=== PATIENT | male | born 1945 | race Caucasian/White ===

== ENCOUNTER 2020-02-18 19:01 | Inpatient (IN) | payer MEDICARE, BC ==
[~2020-02-18] VITALS: Ht 180.3 cm; Wt 77.6 kg
--- NOTE | 2020-02-18 19:07 | NUR ---
LEE MADDOX 88 From [facility] "Fever/more altered than usual. RA sats 82- on 6L/NC now 98. vs checked. hooked on monitor. iv access started blood draw done. urine collected. sent to lab.
[2020-02-18] MEDS ORDERED: IV NS 0.9% 500 ML BAG IV ONE (19:30)
[2020-02-18] MEDS ORDERED: ACETAMINOPHEN 650 MG/SUPP.RECT RC ONE ×2 (19:30→19:39)
[2020-02-18 19:34] LABS: BASOPHILS % (AUTO) 0.3 % (0.0-2.0); HEMATOCRIT 37 % (39-51); HEMOGLOBIN 12.2 g/dL (13.5-17.5); LYMPHOCYTES % (AUTO) 12.7 % (20.0-44.0); MEAN CORPUSCULAR HGB CONC 33 g/dl (31.0-36.0); MEAN CORPUSCULAR VOLUME 94 fL (80-96); MONOCYTES # (AUTO) 0.3 /CMM (0.1-1.30); MONOCYTES % (AUTO) 3.4 % (2.0-12.0); NEUTROPHILS # (AUTO) 6.6 /CMM (1.8-8.9); NEUTROPHILS % (AUTO) 83.6 % (43.0-81.0); PLATELET COUNT (AUTO) 215 /CMM (150-450); RED BLOOD CELL COUNT(AUTO) 3.99 MIL/uL (4.5-6.0); WHITE BLOOD COUNT (AUTO) 7.9 K/uL (4.3-11.0)
[2020-02-18 19:37] LABS: BILIRUBIN,URINE Negative (NEGATIVE); COLOR,URINE YELLOW (YELLOW); LEUKOCYTE ESTERASE ,URINE Negative (NEGATIVE); NITRITE, URINE Positive (NEGATIVE); PH,URINE 5.5 (5.0-8.0); PROTEIN,URINE >=300 mg/dl (NEGATIVE); UGLUCOSE 500 MG/DL mg/dL (NEGATIVE); UROBILINOGEN,URINE 0.2 EU/dL (0.2)
--- NOTE | 2020-02-18 19:40 | NUR ---
TOOK OVER PT CARE. PT NON VERBAL AT THIS MOMENT. PT DOES FOLLOW COMMAND WHEN ASKED TO OPEN AND CLOSE EYES. APPEARS TO BE IN DISTRESS, WARM TO TOUCH. PT ON 4L NC, SAT 98%. UPON CHECKING TEMP, 102.7, AWARE.
--- NOTE | 2020-02-18 19:41 | NUR ---
COOLING MEASURES INITIATED ON PT. WILL RECHECK TEMP.
[2020-02-18 19:44] LABS: CALCIUM, SERUM 8.7 mg/dL (8.5-10.1); CARBON DIOXIDE 32 mmol/L (21-32); CHLORIDE 100 mmol/L (98-107); GLUCOSE 229 mg/dL (74-106); SODIUM SERUM 139 mmol/L (136-145); UREA NITROGEN, BLOOD 22 mg/dL (7-18)
--- NOTE | 2020-02-18 19:48 | NUR ---
CHARISMAID SWABBED, SENT TO LAB.
[2020-02-18 19:50] LABS: WBC,URINE NONE SEEN /HPF (0-3)
[2020-02-18 19:52] LABS: BACTERIA,URINE 2+ /HPF (None Seen); SQUAMOUS EPITHELIAL CELL,UR Few /HPF (None Seen)
[2020-02-18 19:58] LABS: ALANINE AMINOTRANSFERASE 7 U/L (12-78); ALBUMIN 2.7 g/dL (3.4-5.0); ALKALINE PHOSPHATASE 71 U/L (46-116); ASPARTATE AMINOTRANSFERASE 24 U/L (15-37); B-TYPE NATRIURETIC PEPTIDE 1364 PG/ML (0-125); BILIRUBIN,DIRECT 0.1 mg/dL (0.0-0.2); BILIRUBIN,TOTAL 0.3 mg/dL (0.2-1.0); TOTAL PROTEIN, SERUM 7.8 g/dL (6.4-8.2)
--- NOTE | 2020-02-18 19:58 | NUR ---
PT MEDICATED, AWAITING OTHER ORDERS.
[2020-02-18] MEDS ORDERED: VANCOMYCIN 1 GM in IV D5W 250 ML IV ONE (20:30)
[2020-02-18] MEDS ORDERED: PIPERACILLIN /TAZOBACTAM 3.375 G in IV D5W 50 ML IV ONE (20:30)
--- NOTE | 2020-02-18 20:33 | NUR ---
call from lab rapid covid positive.
[2020-02-18] MEDS ORDERED: VANCOMYCIN 1 GM VIAL ONE (20:44)
[2020-02-18] MEDS ORDERED: PIPERACILLIN /TAZOBACTAM 3.375 G VIAL IV ONE (20:44)
--- NOTE | 2020-02-18 21:33 | NUR ---
LUTHER SPOKE TO THE REGARDING PLAN OF CARE.
[2020-02-18] MEDS ORDERED: ONDANSETRON HCL/PF 4 MG/2 ML VIAL IVP PRN (22:30)
[2020-02-18] MEDS ORDERED: ALBUTEROL SULFATE 8 GM HFA.AER.AD IH PRN (22:30)
[2020-02-18] MEDS ORDERED: ACETAMINOPHEN 650 MG/SUPP.RECT RC PRN (22:30)
[2020-02-18] MEDS ORDERED: DEXTROSE 50%-WATER 50 ML DISP.SYRIN IV PRN (22:30)
[2020-02-18] MEDS ORDERED: PANTOPRAZOLE 40 MG VIAL IV SCH (22:30)
[2020-02-18] MEDS ORDERED: FAMOTIDINE/PF INJ 20 MG/2 ML VIAL IV ONE (23:22)
[2020-02-18] MEDS ORDERED: ENOXAPARIN SODIUM 40 MG/0.4 ML DISP.SYRIN SQ ONE (23:22)
[2020-02-18] MEDS ORDERED: DOXYCYCLINE 100 MG VIAL ONE (23:22)
[2020-02-18] MEDS: FAMOTIDINE/PF INJ 20 MG/2 ML VIAL IV SCH (23:32)
[2020-02-18] MEDS: DOXYCYCLINE 100 MG in IV D5W 100 ML IV SCH (23:35)
[2020-02-18] MEDS: IV NS 0.9% 1,000 ML IV PRN (23:35)
[2020-02-18] MEDS: ENOXAPARIN SODIUM 40 MG/0.4 ML DISP.SYRIN SQ SCH (23:37)
[2020-02-19] MEDS: BLOOD SUGAR DIAGNOSTIC 1 EACH STRIP IN SCH ×4 (00:39→17:54)
[2020-02-19] MEDS ORDERED: INSULIN REGULAR, HUMAN 100 UNIT/ML 10 ML VIAL ONE (00:42)
[2020-02-19] MEDS: INSULIN REGULAR, HUMAN 100 UNIT/ML 3 ML VIAL SQ PRN ×4 (00:45→17:57)
--- NOTE | 2020-02-19 00:55 | NUR ---
RESTING COMFORTABLY. REMAINS ON 5L NC. SAT 98%
--- NOTE | 2020-02-19 00:55 | NUR ---
Dru burger in ED - 02/19/20 at 0055 by DAKSHA RESTING COMFORTABLY. REMAINS ON 5L NC. SAT 98%.
[2020-02-19 03:45] LABS: BASOPHILS # (AUTO) 0.1 /CMM (0.0-0.2); BASOPHILS % (AUTO) 0.9 % (0.0-2.0); HEMATOCRIT 38 % (39-51); HEMOGLOBIN 12.2 g/dL (13.5-17.5); LYMPHOCYTES # (AUTO) 1.3 /CMM (0.8-4.8); LYMPHOCYTES % (AUTO) 14.5 % (20.0-44.0); MEAN CORPUSCULAR HGB CONC 32 g/dl (31.0-36.0); MEAN CORPUSCULAR VOLUME 94 fL (80-96); MONOCYTES # (AUTO) 0.3 /CMM (0.1-1.30); MONOCYTES % (AUTO) 3.3 % (2.0-12.0); NEUTROPHILS # (AUTO) 7.2 /CMM (1.8-8.9); NEUTROPHILS % (AUTO) 81.3 % (43.0-81.0); PLATELET COUNT (AUTO) 199 /CMM (150-450); RED BLOOD CELL COUNT(AUTO) 4.02 MIL/uL (4.5-6.0); WHITE BLOOD COUNT (AUTO) 8.9 K/uL (4.3-11.0)
[2020-02-19 04:00] LABS: ALANINE AMINOTRANSFERASE 8 U/L (12-78); ALBUMIN 2.4 g/dL (3.4-5.0); ALKALINE PHOSPHATASE 65 U/L (46-116); ASPARTATE AMINOTRANSFERASE 26 U/L (15-37); BILIRUBIN,TOTAL 0.3 mg/dL (0.2-1.0); CALCIUM, SERUM 8.6 mg/dL (8.5-10.1); CARBON DIOXIDE 27 mmol/L (21-32); CHLORIDE 103 mmol/L (98-107); CREATININE 0.9 mg/dL (0.6-1.3); GLUCOSE 200 mg/dL (74-106); POTASSIUM 3.7 mmol/L (3.5-5.1); SODIUM SERUM 140 mmol/L (136-145); TOTAL PROTEIN, SERUM 6.9 g/dL (6.4-8.2); UREA NITROGEN, BLOOD 19 mg/dL (7-18)
[2020-02-19 04:15] LABS: FERRITIN 324 ng/mL (8-388)
[2020-02-19] MEDS ORDERED: ZOSYN IVPB 3.375 G in IV D5W 50ml IV ONE (05:00)
[2020-02-19] MEDS ORDERED: PIPERACILLIN /TAZOBACTAM 3.375 G in IV D5W 50 ML IV SCH (05:00)
[2020-02-19] MEDS ORDERED: PIPERACILLIN /TAZOBACTAM 3.375 G VIAL IV ONE (05:21)
--- NOTE | 2020-02-19 06:25 | NUR ---
REPORT GIVEN TO ABDIRIZAK MADDOX FOR ROMULO
--- NOTE | 2020-02-19 06:25 | NUR ---
RN NOTES RECEIVED ER ADMISSION REPORT FROM [facility]. ALL PERTINENT ADMISSION INFO REGARDING PT NOTED. WILL WAIT FOR PT TO BE TRANSFERRED TO UNIT AND ADDRESS NEEDS ACCORDINGLY. SHIPPING INSPECTOR MADE AWARE.
--- NOTE | 2020-02-19 06:32 | NUR ---
BG 139, WILL ADMINISTER INSULIN PER PROTOCOL
[2020-02-19] MEDS: IV NS 0.9% 1,000 ML IV PRN (06:43)
--- NOTE | 2020-02-19 06:51 | NUR ---
RN NOTES RECEIVED PT FROM ER VIA LISA ACCOMPANIED BY 1 ER STAFF AND TRANSFERRED TO BED VIA 2 PERSON ASSIST. PT IS ALERT AND ORIENTED X1. PT ON 4L OF O2 VIA NC WITH RESPIRATIONS EVEN AND UNLABORED. COMPREHENSIVE PHYSICAL ASSESSMENT AND PATIENT CARE DONE. CALL LIGHT WITHIN REACH, SAFETY MEASURES AND ISOLATION PRECAUTION IN PLACE, WILL ENDORSE TO AM SHIFT FOR CONTINUATION OF ADMISSION AND ROMULO.
--- NOTE | 2020-02-19 06:51 | NUR ---
PT TRANSFERED PER ACLS PROTOCOL
[2020-02-19 06:58] VITALS: BP 142/76
--- NOTE | 2020-02-19 07:30 | NUR ---
RECEIVED PATIENT ALERTX1, SPEECH GARBLED AND UNCLEAR. PT ABLE TO FOLLOW DIRECTIONS, AND NODS HEAD YES/NO, BUT OFTEN CONFUSED. PT ON 4L NC O2 SAT 95% PT HAS SUPRAPUBIC CATH, DRAINING YELLOW CLEAR URINE. PT NPO, PT IV ACCESS FLUSHED WELL, NO SIGNS OF INFECTION. ALL SAFETY MEASURES IN PLACE. WILL CONTINUE TO MONITOR CLOSELY
[2020-02-19 08:00] VITALS: BP 127/73
[2020-02-19] MEDS: DEXAMETHASONE SOD PHOSPHATE 10 MG/ML VIAL IV SCH (08:06)
[2020-02-19] MEDS ORDERED: DONE5TAB34 PO (08:31)
[2020-02-19] MEDS ORDERED: PRED20TA PO (08:31)
[2020-02-19] MEDS ORDERED: METF-440 PO (08:31)
[2020-02-19] MEDS ORDERED: CARB1TAB24 PO (08:31)
[2020-02-19] MEDS ORDERED: LEVO500T90 PO (08:31)
[2020-02-19] MEDS ORDERED: SELE5TAB5 PO (08:31)
[2020-02-19] MEDS ORDERED: GABA300C PO (08:31)
[2020-02-19] MEDS ORDERED: TRAZ-252 PO (08:31)
[2020-02-19] MEDS ORDERED: EZET10TA32 PO (08:31)
[2020-02-19] MEDS ORDERED: CETI10TA14 PO (08:33)
[2020-02-19] MEDS: DOXYCYCLINE 100 MG in IV D5W 100 ML IV SCH ×2 (10:47→20:07)
[2020-02-19] MEDS: IV NS 0.9% 1,000 ML IV SCH ×2 (10:47→21:39)
[2020-02-19 12:00] VITALS: BP 145/77
[2020-02-19] MEDS: PIPERACILLIN /TAZOBACTAM 3.375 G in IV D5W 100 ML IV SCH ×2 (12:28→18:33)
[2020-02-19 16:00] VITALS: BP 154/88
--- NOTE | 2020-02-19 19:00 | NUR ---
PT REMAINS IN BED, AOX1. PT HAS PUREED DIET, BUT HAS DIFFICULTY SWALLOWING . SPEECH EVAL ORDER IN PLACE. PT HAS SACRAL OPEN WOUND WITH MEPILEX, AND PERINEAL REDNESS. PT IV ACCESS REMAINS INTACT, NO SIGNS OF INFILTRATION. ALL SAFETY MEASURES IN PLACE. REPORT GIVEN TO ELIZABETH FOR ROMULO
--- NOTE | 2020-02-19 19:05 | NUR ---
RECEIVED PT ON BED AWAKE A/X2 OPEN AND CLOSED EYES FOR COMMAND ON 4L NC SPO2 @ 95% NO SIGN AND SYMPTOMS OF SOB, COUGHING WHEN SIPPING SMALL AMOUNT OF WATER VERY HIGH RISK FOR ASPIRATION WILL HOLD ORAL MEDICATION, HAVE TELE MONITOR SR, 80'S HAVE SUPRA PUBIC CATHETER WITH YELLOW URINE DRAINING VIA GRAVITY HAVE RIGHT HAND # 18 WITH ONGOING NS @ 100ML/HR INFUSING WELL BED ON LOWEST POSITION AND LOCKED SIDE RAILS UP X2 CALL LIGHT WITHIN REACH WILL CONT TO MONITOR
[2020-02-19 20:00] VITALS: BP 143/81
[2020-02-19] MEDS: ENOXAPARIN SODIUM 40 MG/0.4 ML DISP.SYRIN SQ SCH (21:39)
[2020-02-19] MEDS: FAMOTIDINE/PF INJ 20 MG/2 ML VIAL IV SCH (21:39)
[2020-02-20] VITALS (7 sets, daily range): BP systolic 154–178; BP diastolic 88–97
[2020-02-20] MEDS: BLOOD SUGAR DIAGNOSTIC 1 EACH STRIP IN SCH ×4 (00:07→17:52)
[2020-02-20] MEDS: INSULIN REGULAR, HUMAN 100 UNIT/ML 3 ML VIAL SQ PRN ×4 (00:08→17:51)
[2020-02-20] MEDS: PIPERACILLIN /TAZOBACTAM 3.375 G in IV D5W 100 ML IV SCH ×3 (02:20→18:00)
--- NOTE | 2020-02-20 06:59 | NUR ---
PT ON BED ASLEEP EASY TO WAKE UP STILL ON 4L O2 VIA NC SPO2 95-98% TELE MONITOR READS SINUS RHYTHM 90'S NO SIGNIFICANT CHANGES ON CONDITION NOTED STILL ON NPO DUE TO PT STILL COUGHING WHEN TAKING SMALL AMOUNT OF ICE OR WATER ALL NEEDS ATTENDED, BED ON LOWEST POSITION AND LOCKED SIDE RAIL UP X2 CALL LIGHT WITHIN REACH WILL ENDORSED TO AM SHIFT NURSE
[2020-02-20] MEDS: DEXAMETHASONE SOD PHOSPHATE 10 MG/ML VIAL IV SCH (08:21)
[2020-02-20] MEDS: DOXYCYCLINE 100 MG in IV D5W 100 ML IV SCH ×2 (08:21→21:08)
[2020-02-20 08:39] LABS: BASOPHILS % (AUTO) 0.1 % (0.0-2.0); HEMATOCRIT 41 % (39-51); HEMOGLOBIN 13.2 g/dL (13.5-17.5); LYMPHOCYTES # (AUTO) 1.1 /CMM (0.8-4.8); LYMPHOCYTES % (AUTO) 10.6 % (20.0-44.0); MEAN CORPUSCULAR HGB CONC 32 g/dl (31.0-36.0); MEAN CORPUSCULAR VOLUME 94 fL (80-96); MONOCYTES # (AUTO) 0.6 /CMM (0.1-1.30); MONOCYTES % (AUTO) 5.9 % (2.0-12.0); NEUTROPHILS # (AUTO) 8.7 /CMM (1.8-8.9); NEUTROPHILS % (AUTO) 83.4 % (43.0-81.0); PLATELET COUNT (AUTO) 250 /CMM (150-450); RED BLOOD CELL COUNT(AUTO) 4.37 MIL/uL (4.5-6.0); WHITE BLOOD COUNT (AUTO) 10.5 K/uL (4.3-11.0)
[2020-02-20 09:14] LABS: CALCIUM, SERUM 8.6 mg/dL (8.5-10.1); CREATININE 0.9 mg/dL (0.6-1.3); POTASSIUM 3.8 mmol/L (3.5-5.1)
--- NOTE | 2020-02-20 10:05 | NUR ---
RN OPENING NOTE. RECEIVED PATIENT IN BED AOX2. PATIENT IS ON 4L NC. PATIENT IS MUMBLING UNCOMPREHENDABLE WORDS. SUPRAPUBIC CATH IS IN PLACE. RHAND #18 IS INTACT, PATENT, AND HAS NO SIGNS OF INFILTRATION. PATIENT HAS SACRAL OPEN SKIN. BED IS IN THE LOWEST POSITION, 2 SIDE RAILS RAISED, CALL MONTIEL WITHIN REACH, AND ALL HOSPITAL SAFETY PRECAUTIONS ARE BEING FOLLOWED. WILL CONTINUE TO MONITOR THROUGHOUT SHIFT.
--- NOTE | 2020-02-20 10:05 | NUR ---
FEEDER OPERATOR AUTOMATIC NOTE REPORTED TO DR SKAGGS ABOUT CHEST COHESION ,STATED TO MONITOR CONT ON 5L NS AWARE THAT SATURATION 85 %
--- NOTE | 2020-02-20 12:00 | NUR ---
KIN MADDOX NOTE T 100,2R TYLENOL RECTALLY GIVEN ORDERED Addendum: 02/20/20 at 1544 by MICHAEL CAMPO RN BP 174/[address] SKAGGS WITH NEW ORDER GIVEN CATAPRES GIVEN ORDERED0.1 MG PO ,ABLE TO TAKE MEDICATION WELL
[2020-02-20] MEDS: IV NS 0.9% 1,000 ML IV SCH (12:02)
[2020-02-20] MEDS: CLONIDINE HCL 0.1 MG TABLET PO PRN ×2 (12:05→18:06)
--- NOTE | 2020-02-20 15:44 | NUR ---
HYDROPONICS GROWER NOTE PER FAMILY WILL BRING HOME MEDS , ORAL SUCTION DONE B Y RT SATURATION 93% AT THIS TIME
[2020-02-20] MEDS ORDERED: HOME MED MISCELLANEOUS XX SCH (17:00)
[2020-02-20] MEDS: SELEGILINE HCL 5 MG CAPSULE PO SCH (17:13)
[2020-02-20] MEDS: CARBIDOPA/LEVODOPA 25/250 MG 1 UDTAB PO SCH ×2 (17:14→21:06)
--- NOTE | 2020-02-20 18:50 | NUR ---
RN CLOSING NOTE PATIENT IS LYING IN BED WITH HOB AT SEMI BASILIO'S POSITION. PATIENT IS AOX2. PATIENT IS ON 4L NC. SUPRAPUBIC CATHETER IS IN PLACE. PATIENT HAS SACRAL OPEN SKIN. RHAND #18 IS INTACT, PATENT, AND HAS NO SIGNS OF INFILTRATION. PATIENT MUMBLES UNCOMPREHENDABLE WORDS. BED IS LOCKED IN THE LOWEST POSITION, CALL MONTIEL WITHIN REACH, 3 SIDE RAILS ARE RAISED, AND ALL HOSPITAL SAFETY PRECAUTIONS ARE BEING FOLLOWED. WILL ENDORSE TO MOBILE PRODUCT MANAGER NURSE.
--- NOTE | 2020-02-20 20:21 | NUR ---
RN NOTES PATIENT ALERT AND ORIENTED X2, SPEAKS INCOMPREHENSIBLE WORDS. ON O2 4LPM VIA NASAL CANNULA, O2 SAT WNL. ON TELE MONITOR, SR NOTED. WITH SUPRAPUBIC CATH, PATENT AND INTACT, DRAINING URINE. WITH IV ACCESS RIGHT HAND #18, RUNNING NS @ 75ML/HR. NO S/S OF ANY DISCOMFORT. BED LOCKED AND IN LOWEST POSITION. SIDE RAILS UP X2. CALL LIGHT WITHIN REACH. WILL CONTINUE TO MONITOR.
[2020-02-20] MEDS: ENOXAPARIN SODIUM 40 MG/0.4 ML DISP.SYRIN SQ SCH (21:07)
[2020-02-20] MEDS: FAMOTIDINE/PF INJ 20 MG/2 ML VIAL IV SCH (21:07)
[2020-02-21] VITALS (7 sets, daily range): BP systolic 100–166; BP diastolic 58–99
[2020-02-21] MEDS: CARBIDOPA/LEVODOPA 25/250 MG 1 UDTAB PO SCH ×6 (00:03→20:58)
[2020-02-21] MEDS: BLOOD SUGAR DIAGNOSTIC 1 EACH STRIP IN SCH ×5 (00:13→23:48)
[2020-02-21] MEDS: INSULIN REGULAR, HUMAN 100 UNIT/ML 3 ML VIAL SQ PRN ×4 (00:16→18:37)
[2020-02-21] MEDS: IV NS 0.9% 1,000 ML IV SCH ×2 (02:00→17:18)
[2020-02-21] MEDS: PIPERACILLIN /TAZOBACTAM 3.375 G in IV D5W 100 ML IV SCH ×3 (02:17→18:39)
--- NOTE | 2020-02-21 07:02 | NUR ---
RN NOTES PATIENT ALERT AND ORIENTED X2, SPEAKS INCOMPREHENSIBLE WORDS. ON O2 4LPM VIA NASAL CANNULA, O2 SAT 95%. ON TELE MONITOR, HR 60'S. WITH SUPRAPUBIC CATH, PATENT AND INTACT, DRAINING URINE WITH OUTPUT 750. WITH IV ACCESS RIGHT HAND #18, RUNNING NS @ 75ML/HR. ALL DUE MEDS GIVEN ORDERED. BED LOCKED AND IN LOWEST POSITION. SIDE RAILS UP X2. CALL LIGHT WITHIN REACH. WILL ENDORSE TO ONCOMING SHIFT.
--- NOTE | 2020-02-21 08:12 | NUR ---
WOUND CARE CONSULT: REVIEWED CHART, NURSING DOCUMENTATION AND PHOTOS WHICH INDICATE RASH TO GROIN FOLDS AND PERINEUM WELL BUTTOCKS AND FULL THICKNESS SACRAL WOUND, PRESENT ON ADMISSION. RECOMMEND SURGICAL CONSULT. DR FLETCHER REYNOSO NOTIFIED OF CONSULT REQUEST. RECOMMENDATIONS MADE FOR SKIN PROTECTION. DISCUSSED WITH NURSING STAFF. ELIF ISOFLEX LOW AIRLOSS BED TO BE PLACED WHEN AVAILABLE. MD IN AGREEMENT WITH PLAN OF CARE.
[2020-02-21] MEDS ORDERED: HYDROGEL DRESSING 90 GM TUBE TP PRN (08:30)
--- NOTE | 2020-02-21 09:00 | NUR ---
Patient's IV line started leaking after Vibramycin started. Medication stopped and called IV team for new line to administer.
[2020-02-21] MEDS: SELEGILINE HCL 5 MG CAPSULE PO SCH ×2 (10:16→17:08)
[2020-02-21] MEDS: DEXAMETHASONE SOD PHOSPHATE 10 MG/ML VIAL IV SCH (10:23)
[2020-02-21] MEDS: DOXYCYCLINE 100 MG in IV D5W 100 ML IV SCH ×2 (10:23→17:19)
[2020-02-21] MEDS: NIFEdipine XL (30MG) 30 MG TAB PO SCH (10:24)
[2020-02-21] MEDS: HYDROGEL DRESSING 90 GM TUBE TP SCH (10:26)
[2020-02-21] MEDS: CLOTRIMAZOLE 1% 15 GM TUBE TP SCH ×2 (10:26→17:08)
[2020-02-21] MEDS ORDERED: NEUPRO 8 MG/24 HR TP SCH (13:58)
--- NOTE | 2020-02-21 16:25 | NUR ---
Patient has a new midline 18G in Right upper arm. Vibramycin restarted and pharmacy notified to change the medication administration times.
--- NOTE | 2020-02-21 19:10 | NUR ---
RN CLOSING NOTE PATIENT IS LYING IN BED WITH HOB AT SEMI BASILIO'S POSITION. PATIENT IS AOX2. PATIENT IS ON 4L NC. SUPRAPUBIC CATHETER IS IN PLACE. PATIENT HAS SACRAL OPEN SKIN. SEEN BY WOUND CARE AND WOUND CARE TREATMENT PROVIDED. COLLEEN MIDLINE 18G PATENT, AND HAS NO SIGNS OF INFILTRATION. PATIENT MUMBLES UNCOMPREHENDABLE WORDS. BED IS LOCKED IN THE LOWEST POSITION, CALL MONTIEL WITHIN REACH, 3 SIDE RAILS ARE RAISED, AND ALL HOSPITAL SAFETY PRECAUTIONS ARE BEING FOLLOWED. ENDORSED TO FIGHT MANAGER VARSHA MO.
--- NOTE | 2020-02-21 19:30 | NUR ---
RN OPENING NOTE RECEIVED PATIENT IN BED RESTING ALERT ORIENTED X2 VERBALLY RESPONSIVE FARSI SPEAKER ONLY,ON 4L OXYGEN VIA NASAL CANNULA O2:94% IV SITE IS ON RIGHT UPPER ARM MIDLINE INTACT PATIENT ON IV HYDRATION NS 0.9% ON SUPRAPUBIC CATHETER URINE YELLOW AND CLEAR DRAINING BY GRAVITY,BED IN LOW POSITION AND LOCKED,BED ALARM IS ON,CALL LIGHT WITHIN REACH,CONTINUE TO MONITOR
[2020-02-21] MEDS: NEUPRO 8 MG/24 HR TP SCH (20:59)
[2020-02-21] MEDS: FAMOTIDINE/PF INJ 20 MG/2 ML VIAL IV SCH (21:02)
[2020-02-21] MEDS: ENOXAPARIN SODIUM 40 MG/0.4 ML DISP.SYRIN SQ SCH (21:03)
[2020-02-22] VITALS: BP 142/86
[2020-02-22] MEDS: INSULIN REGULAR, HUMAN 100 UNIT/ML 3 ML VIAL SQ PRN ×4 (00:18→18:26)
[2020-02-22] MEDS: CARBIDOPA/LEVODOPA 25/250 MG 1 UDTAB PO SCH ×6 (01:21→20:49)
[2020-02-22] MEDS: PIPERACILLIN /TAZOBACTAM 3.375 G in IV D5W 100 ML IV SCH ×3 (02:06→18:56)
[2020-02-22 04:00] VITALS: BP 139/85
[2020-02-22] MEDS: IV NS 0.9% 1,000 ML IV SCH ×2 (04:20→10:48)
[2020-02-22] MEDS: DOXYCYCLINE 100 MG in IV D5W 100 ML IV SCH ×2 (04:41→17:39)
[2020-02-22] MEDS: BLOOD SUGAR DIAGNOSTIC 1 EACH STRIP IN SCH ×3 (05:40→18:24)
[2020-02-22 06:48] LABS: BASOPHILS % (AUTO) 0.2 % (0.0-2.0); HEMATOCRIT 43 % (39-51); HEMOGLOBIN 14.4 g/dL (13.5-17.5); LYMPHOCYTES # (AUTO) 0.9 /CMM (0.8-4.8); LYMPHOCYTES % (AUTO) 10.6 % (20.0-44.0); MEAN CORPUSCULAR HGB CONC 34 g/dl (31.0-36.0); MEAN CORPUSCULAR VOLUME 91 fL (80-96); MONOCYTES # (AUTO) 0.5 /CMM (0.1-1.30); NEUTROPHILS # (AUTO) 7.2 /CMM (1.8-8.9); NEUTROPHILS % (AUTO) 83.2 % (43.0-81.0); PLATELET COUNT (AUTO) 323 /CMM (150-450); RED BLOOD CELL COUNT(AUTO) 4.69 MIL/uL (4.5-6.0); WHITE BLOOD COUNT (AUTO) 8.7 K/uL (4.3-11.0)
--- NOTE | 2020-02-22 07:02 | NUR ---
RN CLOSING NOTE PATIENT REMAINS ON ALERT ORIENTED X2 VERBALLY RESPONSIVE FARSI SPEAKER ONLY,MONITORING FOR COVID POSITIVE AND DROPLET/CONTACT ISOLATION,ON 4L OXYGEN VIA NASAL CANNULA, O2:97%,IV SITE IS ON RIGHT UPPER ARM MID LINE INTACT PATENT ON IV HYDRATION NS 0.9% NS 75CC/HR,SUPRAPUBIC CATHETER IN PLACE URINE IS YELLOW AND CLEAR,ALL DUE MEDS GIVEN MD ORDERED KEPT CLEAN AND DRY ALL THE TIME,KEPT COMFORTABLE,ENDORSE NEXT COMING SHIFT FOR CONTINUATION OF CARE.
[2020-02-22 07:21] LABS: CALCIUM, SERUM 9.3 mg/dL (8.5-10.1); CREATININE 0.8 mg/dL (0.6-1.3); POTASSIUM 4.1 mmol/L (3.5-5.1)
--- NOTE | 2020-02-22 07:30 | NUR ---
WELLNESS EDUCATOR OPENING NOTES Patient received in bed. No s/s of respiratory distress. On 02 4 lpm via n/c with 02 saturation of 95%. No c/o pain or discomfort. Suprapubic cath intact and noted with clear yellow urine. Patient's head of bed kept elevated for lung expansion and aspiration precautions. Patient's midline iv site free of any s/s of infection or bleeding. Patient will be monitored. Call light with in reach.
--- NOTE | 2020-02-22 07:46 | NUR ---
RECEIVED PATIENT IN BED. NO ACUTE DISTRESS NOTED. PATIENT ALERT & ORIENTED X2. PATIENT ON 4L NC, SATURATING WELL AT 94%. PATIENT ON STABLE HAND, NSR NOTED. PATIENT SUPRAPUBIC CATHETER INTACT, DRAINING TO GRAVITY PATIENT COLLEEN MIDLINE INTACT, PATENT, FLUSHED WELL. PATIENT SAFETY MEASURES MAINTAINED. CALL LIGHT WITHIN REACH. WILL CONTINUE TO MONITOR.
[2020-02-22 08:00] VITALS: BP 162/82
[2020-02-22] MEDS: SELEGILINE HCL 5 MG CAPSULE PO SCH ×2 (09:14→17:39)
[2020-02-22] MEDS: NIFEdipine XL (30MG) 30 MG TAB PO SCH (09:14)
[2020-02-22] MEDS: HYDROGEL DRESSING 90 GM TUBE TP SCH (09:14)
[2020-02-22] MEDS: DEXAMETHASONE SOD PHOSPHATE 10 MG/ML VIAL IV SCH (09:14)
[2020-02-22] MEDS: CLOTRIMAZOLE 1% 15 GM TUBE TP SCH ×2 (09:15→17:36)
[2020-02-22] MEDS: PANTOPRAZOLE 40 MG/PACK PACK PO SCH (10:47)
[2020-02-22 12:00] VITALS: BP 132/77
[2020-02-22 16:00] VITALS: BP 142/80
--- NOTE | 2020-02-22 19:48 | NUR ---
IN CLASSROOM TUTOR CLOSING NOTES Patient currently in bed. No s/s of respiratory distress. On 02 4 lpm via n/c with 02 saturation of 98%. No c/o pain or discomfort. Suprapubic cath intact and noted with clear yellow urine and noted wiht 1100 cc output during shift.. Patient's midline to right upper arm free of any s/s of infection or bleeding. Bed is in lowest and locked position. Endorsed to next shift to follow up.
--- NOTE | 2020-02-22 19:48 | NUR ---
RN OPENING NOTE RECEIVED PATIENT IN BED RESTING ALERT ORIENTED X2 VERBALLY RESPONSIVE FARSI SPEAKER ONLY,ON 4L OXYGEN VIA NASAL CANNULA O2:94% IV SITE IS ON RIGHT UPPER ARM MIDLINE INTACT PATIENT ON IV HYDRATION NS 0.9% 75CC/HR RUNNING,PATIENT IS ON SUPRAPUBIC CATHETER URINE YELLOW AND CLEAR DRAINING BY GRAVITY,BED IN LOW POSITION AND LOCKED,BED ALARM IS ON,CALL LIGHT WITHIN REACH,SAFETY MEASURE IMPLEMENT,CONTINUE TO MONITOR
[2020-02-22 20:00] VITALS: BP 148/97
[2020-02-22] MEDS: NEUPRO 8 MG/24 HR TP SCH (20:50)
[2020-02-22] MEDS: ENOXAPARIN SODIUM 40 MG/0.4 ML DISP.SYRIN SQ SCH (22:10)
[2020-02-23] VITALS: BP 161/97
[2020-02-23] MEDS: CARBIDOPA/LEVODOPA 25/250 MG 1 UDTAB PO SCH ×5 (00:10→16:48)
[2020-02-23] MEDS: BLOOD SUGAR DIAGNOSTIC 1 EACH STRIP IN SCH ×4 (00:12→16:49)
[2020-02-23] MEDS: INSULIN REGULAR, HUMAN 100 UNIT/ML 3 ML VIAL SQ PRN ×4 (00:14→16:53)
[2020-02-23] MEDS: CLONIDINE HCL 0.1 MG TABLET PO PRN (01:27)
[2020-02-23] MEDS: PIPERACILLIN /TAZOBACTAM 3.375 G in IV D5W 100 ML IV SCH ×3 (02:37→18:27)
[2020-02-23 04:00] VITALS: BP 158/98
[2020-02-23] MEDS: DOXYCYCLINE 100 MG in IV D5W 100 ML IV SCH ×2 (04:03→16:48)
[2020-02-23] MEDS: IV NS 0.9% 1,000 ML IV SCH ×2 (05:51→09:51)
--- NOTE | 2020-02-23 06:26 | NUR ---
RN CLOSING NOTE PATIENT REMAINS ON ALERT ORIENTED X2 NO SOB NOT ACUTE DISTRESS NOTED,ON 4L OXYGEN VIA NASAL CANNULA O2>90% IV SITE IS ON RIGHT UPPER ARM MIDLINE INTACT PATENT ON IV HYDRATION NS 0.9% 75CC,HR URINE IS YELLOW AND CLEAR DRAINING FROM SUPRAPUBIC CATHETER,ALL DUE MEDS GIVEN MD ORDERED KEPT CLEAN AND DRY ALL THE TIME,ALL NEEDS MET,ENDORSE NEXT COMING SHIFT FOR CONTINUATION OF CARE.
[2020-02-23 07:00] LABS: HEMATOCRIT 42 % (39-51); HEMOGLOBIN 13.9 g/dL (13.5-17.5); LYMPHOCYTES # (AUTO) 0.9 /CMM (0.8-4.8); LYMPHOCYTES % (AUTO) 9.3 % (20.0-44.0); MEAN CORPUSCULAR HGB CONC 33 g/dl (31.0-36.0); MEAN CORPUSCULAR VOLUME 93 fL (80-96); MONOCYTES # (AUTO) 0.5 /CMM (0.1-1.30); MONOCYTES % (AUTO) 4.7 % (2.0-12.0); NEUTROPHILS # (AUTO) 8.7 /CMM (1.8-8.9); PLATELET COUNT (AUTO) 312 /CMM (150-450); RED BLOOD CELL COUNT(AUTO) 4.54 MIL/uL (4.5-6.0); WHITE BLOOD COUNT (AUTO) 10.1 K/uL (4.3-11.0)
[2020-02-23 07:06] LABS: CALCIUM, SERUM 8.7 mg/dL (8.5-10.1); CREATININE 0.8 mg/dL (0.6-1.3); POTASSIUM 3.6 mmol/L (3.5-5.1)
[2020-02-23 08:00] VITALS: BP 150/95
--- NOTE | 2020-02-23 08:00 | NUR ---
RN Opening note Received patient in bed, AO x 3 able to responds all stimuli, Pt does no appears pain or distress. Skin is warm to touch keep clean/dry intact midline on right upper arm, respiratory even and unlabored with oxygen at 4L via n/c O2sat 96%. Kept locked bed with elevated HOB for aspiration precaution and ensure airway and lowest bed foe safety. Call light within reach, will continue to monitor.
[2020-02-23] MEDS: PANTOPRAZOLE 40 MG/PACK PACK PO SCH (08:17)
[2020-02-23] MEDS: DEXAMETHASONE SOD PHOSPHATE 10 MG/ML VIAL IV SCH (08:18)
[2020-02-23] MEDS: NIFEdipine XL (30MG) 30 MG TAB PO SCH (08:19)
[2020-02-23] MEDS: SELEGILINE HCL 5 MG CAPSULE PO SCH ×2 (08:21→16:49)
[2020-02-23] MEDS: HYDROGEL DRESSING 90 GM TUBE TP SCH (08:27)
[2020-02-23] MEDS: CLOTRIMAZOLE 1% 15 GM TUBE TP SCH ×2 (08:27→16:51)
[2020-02-23] MEDS ORDERED: METH4TAB3 PO (10:18)
[2020-02-23] MEDS ORDERED: DOXY100C2 PO (10:18)
--- NOTE | 2020-02-23 10:26 | NUR ---
Patient desaturate 88% on room air at rest.
[2020-02-23 12:00] VITALS: BP 109/64
[2020-02-23 16:00] VITALS: BP 148/68
--- NOTE | 2020-02-23 18:50 | NUR ---
RN closing Patient in bed resting, does no appears distress or discomfort. Skin is warm to touch no fever keep clean/dry, intact IV site. Respiratory even and unlabored with oxygen at 4L via NC O2sat 97%. Kept elevated HOB for ensure air way and aspiration precaution and lowest bed for safety. Patient discharge to boarding care, home medication(Neupro) returned from pharmacy, will product picker patient around 1930, Call light within reach, will endorse hourly shift manager
--- NOTE | 2020-02-23 20:20 | NUR ---
RADIO TECHNICIANOPERATIONS TECHNICIAN NOTE Patient awake in bed, A/O x2. All valuables and belongings given to patient. Belongings list reviewed and signed. EMS given medication and signed by EMS. No acute distress or SOB noted. IV site removed, intact. Patient tolerated well. No signs of redness. Patient DC'ed at 2044.
== END 2020-02-24 01:28 | disposition home health service (06) | DRG 177 ==
LOC: ER 19:04 → TRANSITION 21:47 → TELE1 02-19 04:34
PROVIDERS: ADMIT Nurse Practitioner Acute Care; ATTEND Internal Medicine
PROC: 05HY33Z Insertion of Infusion Device into Upper Vein, Percutaneous Approach (ICD-10-PCS; principal; 2020-02-21)
DX: U07.1 COVID-19 (principal); J96.01 Acute respiratory failure with hypoxia; G93.41 Metabolic encephalopathy; J12.82 Pneumonia due to coronavirus disease 2019; J15.9 Unspecified bacterial pneumonia; E44.0 Moderate protein-calorie malnutrition; N17.9 Acute kidney failure, unspecified; E86.0 Dehydration; D72.810 Lymphocytopenia; F02.80 Dementia in other diseases classified elsewhere, unspecified severity, without behavioral disturbance, psychotic disturbance, mood disturbance, and anxiety; G20 Parkinson's disease; E78.5 Hyperlipidemia, unspecified; M62.50 Muscle wasting and atrophy, not elsewhere classified, unspecified site; E88.09 Other disorders of plasma-protein metabolism, not elsewhere classified; E11.65 Type 2 diabetes mellitus with hyperglycemia; Z79.4 Long term (current) use of insulin; S31.000A Unspecified open wound of lower back and pelvis without penetration into retroperitoneum, initial encounter; X58.XXXA Exposure to other specified factors, initial encounter; Y93.9 Activity, unspecified; Y92.89 Other specified places as the place of occurrence of the external cause
CPT/HCPCS: 31720; 36415; 71045-TC; 80048-TC; 80053-TC; 80076-TC; 81001; 82728-TC; 82962-TC; 83605-TC; 83615-TC; 83880; 84484-TC; 85025-TC; 85378-TC; 85730-TC; 86140-TC; 87040-TC; 87081-TC; 87086-TC; 92526; 92611-TC; A6248; A6253; A6403; C9803; G0378; J1100; J1650; J1815; J2405; J2543; J3370; J3490; J7030; J7040; J7050; J7060; U0003